=== PATIENT | female | born 1950 | race Caucasian/White ===

== ENCOUNTER 2019-07-26 06:30 | Day surgery (SDC) | payer MEDICARE, OTHER ==
[2019-07-26] MEDS ORDERED: Propofol 200 MG/20 ML SDV IV ONE (06:31)
[2019-07-26] MEDS ORDERED: Lidocaine 2% 100 MG/5 ML Syringe IVPUSH ONE (06:31)
[2019-07-26] MEDS ORDERED: Sodium Chloride 0.9% 10 ML Syringe FLUSH PRN (06:45)
[2019-07-26] MEDS ORDERED: Lactated Ringers 1,000 ML IV SCH (06:45)
[2019-07-26] MEDS: Albuterol/Ipratropium 3.0-0.5 MG/3 ML Neb Soln NEB PRN ×2 (07:54→09:30)
--- NOTE | 2019-07-26 08:11 | PCM.HPR ---
H & P Addendum review - H & P Addendum Review Date of Original H & P: 06/30/19 Date Reviewed: 07/26/19 Time Reviewed: 08:00 Patient was Examined: No Changes
--- NOTE | 2019-07-26 09:08 | PCM.OPNOTE ---
- General Post-Op/Procedure Note Date of Surgery/Procedure: 07/26/19 Operative Procedure(s): EGD. colonoscopy Findings: Normal EGD Sig tics Pre Op Diagnosis: GERD. Colon Screening Post-Op Diagnosis: Same Anesthesia Technique: MAC Primary Surgeon: Paresh Moore Complications: None Condition: Good
--- NOTE | 2019-07-26 11:38 | OR ---
DATE OF OPERATION: 07/26/2019 SURGEON: Paresh Moore MD PREOPERATIVE DIAGNOSES: 1. Gastroesophageal reflux disease. 2. Colon screening. POSTOPERATIVE DIAGNOSES: 1. Normal EGD. 2. Sigmoid diverticulosis. PROCEDURE: 1. EGD. 2. Colonoscopy. ANESTHESIA: IV sedation. PROCEDURE IN DETAIL: The patient was brought to the procedure room, where she was placed on her left side and IV sedation administered. Oral bite block was placed and the upper endoscope advanced into the esophagus under direct vision without difficulty. Vocal cords were viewed and were normal. The scope was advanced to the third portion of the duodenum. The duodenum and pylorus were normal. Antrum and body of the stomach were normal. Retroflexion reveals a normal-appearing fundus. No hiatal hernia was present. The squamocolumnar junction appeared normal. There was no evidence of esophagitis. Air was removed in the stomach and the scope withdrawn through the remaining esophagus, which appears normal. The patient tolerated this portion of the procedure well. Next, colonoscopy was performed after digital rectal exam was done, which was normal. The colonoscope was inserted and advanced to the level of the cecum with a difficulty getting through a tortuous colon. This required pressure on the abdomen and eventually changing to the supine position. The cecum was confirmed by identifying the appendiceal lumen and ileocecal valve. Prep was poor to fair with thick stool remaining throughout the entire colon that was mostly irrigated and suctioned. It just had large polyps or tumors what have been visible, but small polyps could have been missed. Upon withdrawing the scope, the ascending, transverse, and descending colon were normal in appearance. The sigmoid colon had several large diverticula present. Rectum was normal and retroflexion was normal. Air was removed and the scope was withdrawn. The patient tolerated the procedure well and returned to recovery in stable condition. Recommend routine colon screening again in 10 years. /[id number] KOLE/AMANDA
== END 2019-07-26 10:30 | disposition home or self-care (01) ==
LOC: FB.SDS 06:30
PROVIDERS: ATTEND Surgery
DX: Z12.11 Encounter for screening for malignant neoplasm of colon (principal); K21.9 Gastro-esophageal reflux disease without esophagitis; K57.30 Diverticulosis of large intestine without perforation or abscess without bleeding; Q43.8 Other specified congenital malformations of intestine; J44.9 Chronic obstructive pulmonary disease, unspecified; E11.9 Type 2 diabetes mellitus without complications; I10 Essential (primary) hypertension; J30.2 Other seasonal allergic rhinitis; F17.210 Nicotine dependence, cigarettes, uncomplicated; F32.9 Major depressive disorder, single episode, unspecified; Z79.899 Other long term (current) drug therapy; Z79.84 Long term (current) use of oral hypoglycemic drugs
CPT/HCPCS: 00813-QZ; 77063; 77067; 82962; 94640; J2001; J2704; J7120; J7620-GY